=== PATIENT | female | born 1945 | race Caucasian/White ===

== ENCOUNTER 2017-01-20 08:12 | Inpatient (IN) ==
[2017-01-20] MEDS ORDERED: 0.9 % Sodium Chloride 1,000 ML IVC ONE (08:22)
--- NOTE | 2017-01-20 08:27 | Emergency Department Note ---
Disposition Clinical Impression: TIA (transient ischemic attack) Qualifiers: Transient cerebral ischemia type: unspecified Qualified Code(s): G45.9 - Transient cerebral ischemic attack, unspecified Disposition: Admitted As Inpatient Condition: Good Referrals: NO,PCP [Primary Care Provider] - Time of Disposition: 13:53 Neuro HPI - General Chief Complaint: ED Neuro Symptoms/Deficit Stated Complaint: Speech problems for 1 hour Time Seen by Provider: 01/20/17 08:21 Source: patient Mode of arrival: ambulatory Limitations: no limitations Nursing Notes Reviewed: Yes Vital Signs Reviewed: Yes - History of Present Illness HPI Narrative: 71-year-old female with 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 Patient has a history of possible mini strokes but has never been diagnosed with TIAs in the past, patient has no history of CAD, no history of atrial fibrillation. Denies chest pain abdominal pain nausea vomiting diarrhea constipation hematuria or dysuria Onset of Symptoms Date: 01/20/17 Onset of Symptoms Time: 07:25 Symptom Onset Unknown: Yes Timing confirmed by: spouse Location: speech History of same: No Severity: none, now resolved Symptoms Improving: Yes Improves with: none Worsens with: none On Anticoagulants: No Associated symptoms: Denies: confusion, chest pain, cough, diaphoresis, fever/ chills, loss of appetite, malaise, nausea/vomiting, vertigo, seizures, shortness of breath Treatments Prior to Arrival: none - Related Data Home Medications: Home Medications Medication Instructions Recorded Confirmed Aspirin Enteric Coated [Aspirin EC] 81 mg PO BID 01/20/17 01/20/17 Atorvastatin Calcium [Lipitor] 20 mg PO HS 01/20/17 01/20/17 Calcium Crb,Cit/D3/Min34/Julio César 1 tab PO DAILY 01/20/17 01/20/17 [Citracal + Bone Density Tablet] Cyanocobalamin (Vitamin B-12) 1,000 mcg PO DAILY 01/20/17 01/20/17 [Vitamin B12] Omeprazole [PriLOSEC] 20 mg PO DAILY 01/20/17 01/20/17 Spironolactone [Aldactone] 100 mg PO DAILY 01/20/17 01/20/17 predniSONE [PredniSONE] 10 mg PO DAILY 01/20/17 01/20/17 Allergies/Adverse Reactions: Allergies Allergy/AdvReac Type Severity Reaction Status Date / Time NSAIDS (Non-Steroidal AdvReac See Verified 01/20/17 13:01 Anti-Inflamma Comments All systems ED: reviewed and negative except as stated. Constitutional: Denies: fever, chills Eyes: Denies: eye pain, eye discharge ENT ED: Denies: ear pain Cardiovascular: Denies: chest pain, palpitations Respiratory: Denies: cough, dyspnea Gastrointestinal: Denies: abdominal pain, nausea Musculoskeletal: Denies: back pain, neck pain Neurological: Reports: as per HPI, other (speech trouble). Denies: headache, weakness, numbness, paresthesias, confusion, abnormal gait, vertigo Psychiatric: Denies: anxiety, depression Past Medical History - Past Medical History Attestation: Yes The following information was validated with the patient. Source: patient Physical Exam - General Limitations: no limitations General appearance: alert - Head Head exam: atraumatic, normocephalic - Eye Eye exam: Present: normal appearance, PERRL, EOMI - ENT ENT exam: normal exam, normal oropharynx - Neck Neck exam: Present: normal inspection, full ROM - Chest Chest inspection: Present: normal inspection, symmetric chest wall rise - Respiratory Respiratory exam: Present: normal lung sounds bilaterally. Absent: respiratory distress, wheezes - Cardiovascular Cardiovascular exam: Present: regular rate, normal rhythm - Abdominal Exam Abdominal exam: Present: soft, Non-Tender. Absent: tenderness - Extremities Exam Extremities exam: Present: normal inspection, full ROM - Back Exam Back exam: Present: normal inspection - Neurological Exam Neurological exam: Present: oriented X3, CN II-XII intact, normal gait, reflexes normal. Absent: motor sensory deficit - Expanded Neurological Exam Patient oriented to: Present: person, place, time Speech: Present: fluid speech. Absent: receptive aphasia Cranial nerves: EOM function (II, III, IV, ): Normal, facial sensation (V): Normal, facial palsy (VII): Normal, gag reflex (IX): Normal, spinal accessory function (XI): Normal, tongue deviation (XII): Normal Cerebellar function: finger to nose: Normal, heel to ely: Normal Cerebellar function: normal gait Motor strength - LUE: 5/5 Motor strength - RUE: 5/5 Motor strength - LLE: 5/5 Motor strength - RLE: 5/5 Upper motor neuron exam: carolyn neglect: Absent bilaterally Coma Scale Eye Opening: Spontaneous Coma Scale Motor Response: Obeys Commands Coma Scale Verbal Response: Oriented Coma Scale Total: 15 - Psychiatric Psychiatric exam: Present: normal affect - Skin Skin exam: Present: warm, dry Course Course Narrative: 71-year-old female with transient dysarthria, she has no neurologic deficits at time of the exam and her nature 0 therefore no stroke alert given contra indication of improved symptoms, no signs of stroke and at the time of the ED evaluation, the patient will be given a stat CT scan basic workup including CBC BMP troponin and further evaluation for possible TIA versus electrolyte abnormality or infectious etiology of her symptoms - Reevaluation(s) Reevaluation #1: Reevaluated patient still has no NIH scale her NIH is [address] is negative will give her aspirin, the patient does have the sense that she has some cognitive delay and she is not speaking quite right however it is not really noticeable on exam, therefore we will admit the patient for further neurologic evaluation and possible MRI Time: 13:00 Vital Signs Temperature 97.8 F 01/20/17 08:22 Pulse Rate 79 01/20/17 08:22 Respiratory Rate 16 01/20/17 08:22 Blood Pressure 188/84 01/20/17 08:22 O2 Sat by Pulse Oximetry 99 01/20/17 08:22 Temperature 97.8 F 01/20/17 08:22 Pulse Rate 78 01/20/17 11:23 Respiratory Rate 18 01/20/17 11:23 Blood Pressure 158/78 01/20/17 11:23 O2 Sat by Pulse Oximetry 96 01/20/17 11:23 Oxygen Delivery Oxygen Delivery Room Air Neuro Symptoms/Deficit - MDM Narrative Medical decision making narrative: 69-year-old female with possible TIA admitted to the medicine service under the care of Dr. Hancock in stable condition at the time of ED disposition - Differential Diagnosis Likely: cerebrovascular accident, transient cerebral ischemia, multiple sclerosis, convulsions - Medical Records Medical records reviewed: Yes I reviewed the patient's medical records. - Lab Data Lab results reviewed: Yes I reviewed the patient's lab results. Result diagrams: 01/20/17 08:43 01/20/17 08:43 Lab Results 01/20/17 01/20/17 01/20/17 Range/Units 08:23 08:43 08:43 WBC 11.8 H (4.3-11.1) K/mcL RBC 4.83 (3.82-4.97) M/mcL Hgb 14.9 (11.5-15.4) g/dL Hct 44.2 (35.3-44.9) % MCV 91.5 (83.0-100.0) fL MCH 30.8 (28.0-33.3) pg MCHC 33.7 (31.6-35.5) g/dL RDW 12.5 (11.5-14.5) % Plt Count 153 (140-400) K/mcL MPV 8.8 L (9.4-12.4) fL Immature Gran % 0.6 (0-4) % Seg Neutrophils % 82.2 % Lymphocytes % 11.4 % Monocytes % 4.7 % Eosinophils % 0.7 % Basophils % 0.4 % Neutrophils # 9.7 H (1.6-8.9) K/mcL Lymphocytes # 1.4 (0.6-4.6) K/mcL Monocytes # 0.6 (0.0-1.3) K/mcL Eosinophils # 0.1 (0.0-0.6) K/mcL Basophils # 0.1 (0.0-0.2) K/mcL PT 11.3 (9.4-12.1) Seconds INR 1.0 APTT 23.8 L (26.0-36.0) Seconds Sodium (136-145) mEq/L Potassium (3.5-4.5) mEq/L Chloride (98-109) mEq/L Carbon Dioxide (19-29) mEq/L BUN (7-20) mg/dL Creatinine (0.57-1.11) mg/dL Est GFR ( Amer) (> 60) Est GFR (Non-Af Amer) (> 60) BUN/Creatinine Ratio (6-26) Glucose (70-99) mg/dL POC Glucose 104 H (58-89) Calculated Osmolality (280-300) Calcium (8.6-10.8) mg/dL Troponin I (0-0.03) ng/mL Urine Color (Yellow) Urine Clarity (Clear) Urine pH (5.0-8.0) pH Units Ur Specific [place] (1.010-1.025) Urine Protein (Neg-Trace) mg/dL Urine Glucose (UA) (Normal) mg/dL Urine Ketones (Negative) mg/dL Urine Blood (Negative) Urine Nitrite (Negative) Urine Bilirubin (Negative) Urine Urobilinogen (Normal) mg/dL Ur Leukocyte Esterase (Negative) Urine Microscopic RBC (0-3) per hpf Urine Microscopic WBC (0-3) per hpf Ur Squamous Epith Cells (None-Few) per lpf Urine Bacteria (None-Few) per hpf Hyaline Casts (None-Few) per lpf Ur Culture Indicated? (NO) 01/20/17 01/20/17 01/20/17 Range/Units 08:43 08:43 11:19 WBC (4.3-11.1) K/mcL RBC (3.82-4.97) M/mcL Hgb (11.5-15.4) g/dL Hct (35.3-44.9) % MCV (83.0-100.0) fL MCH (28.0-33.3) pg MCHC (31.6-35.5) g/dL RDW (11.5-14.5) % Plt Count (140-400) K/mcL MPV (9.4-12.4) fL Immature Gran % (0-4) % Seg Neutrophils % % Lymphocytes % % Monocytes % % Eosinophils % % Basophils % % Neutrophils # (1.6-8.9) K/mcL Lymphocytes # (0.6-4.6) K/mcL Monocytes # (0.0-1.3) K/mcL Eosinophils # (0.0-0.6) K/mcL Basophils # (0.0-0.2) K/mcL PT (9.4-12.1) Seconds INR APTT (26.0-36.0) Seconds Sodium 141 (136-145) mEq/L Potassium 3.5 (3.5-4.5) mEq/L Chloride 103 (98-109) mEq/L Carbon Dioxide 28 (19-29) mEq/L BUN 18 (7-20) mg/dL Creatinine 1.04 (0.57-1.11) mg/dL Est GFR ( Amer) > 60 (> 60) Est GFR (Non-Af Amer) 53 L (> 60) BUN/Creatinine Ratio 17 (6-26) Glucose 111 H (70-99) mg/dL POC Glucose (58-89) Calculated Osmolality 295 (280-300) Calcium 9.8 (8.6-10.8) mg/dL Troponin I 0.01 (0-0.03) ng/mL Urine Color Yellow (Yellow) Urine Clarity Clear (Clear) Urine pH 7.0 (5.0-8.0) pH Units Ur Specific [place] 1.006 L (1.010-1.025) Urine Protein Negative (Neg-Trace) mg/dL Urine Glucose (UA) Normal (Normal) mg/dL Urine Ketones Negative (Negative) mg/dL Urine Blood Negative (Negative) Urine Nitrite Negative (Negative) Urine Bilirubin Negative (Negative) Urine Urobilinogen Normal (Normal) mg/dL Ur Leukocyte Esterase Trace H (Negative) Urine Microscopic RBC 0-3 (0-3) per hpf Urine Microscopic WBC 0-3 (0-3) per hpf Ur Squamous Epith Cells Moderate H (None-Few) per lpf Urine Bacteria None Seen (None-Few) per hpf Hyaline Casts None Seen (None-Few) per lpf Ur Culture Indicated? YES A (NO) - Radiology Data Radiology results reviewed: Yes I reviewed the patient's radiology results. Head CT 01/20/17 08:22 IMPRESSION: No acute intracranial abnormality. D/ / Francisco Mcknight MD / Francisco Mcknight MD Interpreting Provider: Francisco Mcknight MD - EKG Data EKG attestation: Yes I reviewed and interpreted this EKG. EKG shows normal: sinus rhythm (Sinus rhythm ventricular rate 72 AK 171 QRS 102 QTC for [address] seg changes) When compared to previous EKG there are: previous EKG unavailable Interpretation: no acute changes - Core Measures AMI Core Measures Followed: No Measure Exclusions: not indicated NIH Stroke Scale - Level of Consciousness LOC: Alert - LOC Questions LOC Questions: Answers both correctly - LOC Commands LOC Commands: Performs both correctly - Best Gaze Best Gaze: Normal - Visual Visual: No visual loss - Facial Palsy Facial Palsy: Normal - Motor Arms Motor Arm-Left: No drift for 10 seconds Motor Arm-Right: No drift for 10 seconds - Motor Legs Motor Leg-Left: No drift for 5 seconds Motor Leg-Right: No drift for 5 seconds - Limb Ataxia Limb Ataxia: Absent of affected limb too weak to perform exam - Sensory Sensory: Normal - Best Language Best Language: No aphasia - Dysarthria Dysarthria: Normal - Extinction and Inattention Extinction and Inattention: Normal - NIHSS Total Score NIHSS Total Score: 0 TPA Checklist - LKW: 3-4.5 hrs Add. Warnings/Precautions Patient/family understanding: The patient/family members have been counseled and understood the risk, benefit , and alternatives of treatment. Attestation Statement - Attestation Attestation: I examined this patient and my medical decision-making was reviewed with the JEWEL SUPERVISOR/PA/Advanced Practice Nurse/Resident Physician. I agree with the documented findings, disposition and treatment plan as described except to the extent set forth below. Patient emergency department with some speech problems. Patient states she was looking at hay jennifer this morning and could not remember how they got there. States she was also having trouble with word finding. States is mostly resolved but her states she is not speaking normally at this time. Patient states she has had 2 mini strokes in the past. Denies any numbness tingling or weakness. On examination she is awake and alert. Speech pattern seem appropriate for us. NIH scale is 0. She is able to name fixtures. She is able to read names appropriately. No focal findings. Plan. The patient had a neuro workup is unremarkable. Concern for TIA. Patient will be admitted.
[2017-01-20 08:49] LABS: Basophils # 0.1 K/mcL (0.0-0.2); Basophils % 0.4 %; Eosinophils # 0.1 K/mcL (0.0-0.6); Eosinophils % 0.7 %; Hematocrit 44.2 % (35.3-44.9); Hemoglobin 14.9 g/dL (11.5-15.4); Immature Granulocytes % 0.6 % (0-4); Lymphocytes # 1.4 K/mcL (0.6-4.6); Lymphocytes % 11.4 %; Mean Corpuscular HGB Conc 33.7 g/dL (31.6-35.5); Mean Corpuscular Hemoglobin 30.8 pg (28.0-33.3); Mean Corpuscular Volume 91.5 fL (83.0-100.0); Mean Platelet Volume 8.8 fL (9.4-12.4); Monocytes # 0.6 K/mcL (0.0-1.3); Monocytes % 4.7 %; Neutrophils # 9.7 K/mcL (1.6-8.9); Platelet Count 153 K/mcL (140-400); Red Blood Count 4.83 M/mcL (3.82-4.97); Red Cell Distribution Width 12.5 % (11.5-14.5); Segmented Neutrophils % 82.2 %
[2017-01-20 08:55] LABS: Prothrombin Time 11.3 Seconds (9.4-12.1)
[2017-01-20 08:58] LABS: Activated Partial Thrombo Time 23.8 Seconds (26.0-36.0)
[2017-01-20 09:04] LABS: BUN/Creatinine Ratio 17 (6-26); Blood Urea Nitrogen 18 mg/dL (7-20); Calcium 9.8 mg/dL (8.6-10.8); Carbon Dioxide 28 mEq/L (19-29); Chloride 103 mEq/L (98-109); Glucose 111 mg/dL (70-99); Osmolality,Calculated 295 (280-300); Potassium 3.5 mEq/L (3.5-4.5); Sodium 141 mEq/L (136-145); eGFR For African Americans > 60 (> 60); eGFR For Non-African Americans 53 (> 60)
[2017-01-20 11:32] LABS: Bilirubin,Urine Negative (Negative); Blood,Urine Negative (Negative); Clarity,Urine Clear (Clear); Color,Urine Yellow (Yellow); Glucose,Urine (UA) Normal (Normal); Ketones,Urine Negative (Negative); Leukocyte Esterase,Urine Trace (Negative); Nitrite,Urine Negative (Negative); Protein,Urine Negative (Neg-Trace); Specific Gravity,Urine 1.006 (1.010-1.025); Urobilinogen,Urine Normal (Normal)
[2017-01-20 11:35] LABS: Bacteria,Urine None Seen per hpf (None-Few); Hyaline Casts,Urine None Seen per lpf (None-Few); RBC,Urine 0-3 per hpf (0-3); Squamous Epithelial Cell,Urine Moderate per lpf (None-Few); WBC,Urine 0-3 per hpf (0-3)
[2017-01-20] MEDS ORDERED: Aspirin 325 MG TABLET PO ONE (12:07)
[2017-01-20] MEDS ORDERED: Naloxone 0.4 MG/ML INJ IVP PRN (13:48)
[2017-01-20] MEDS ORDERED: Acetaminophen 325 MG TABLET PO PRN (13:48)
--- NOTE | 2017-01-20 15:44 | Internal Med History&Physical ---
Date of Encounter: 01/21/17 Time of Encounter: 15:42 Assessment and Plan (1) TIA (transient ischemic attack) Current visit: Yes Status: Acute 71/female Admitted with symptoms of TIA/CVA. Noted bizarre behavior in terms of identifying simple things on her way to [place]. Emergency room workup negative for any acute events. Plan: -Admit as inpatient. -Telemetry. -Cardiac diet -ASA/Statin - MRI brain without contrast. -Ultrasound candidate. -Echocardiogram. -Cycle troponin 3. -Possible further workup if MRI shows infarction Qualifiers: Transient cerebral ischemia type: unspecified Qualified Code(s): G45.9 - Transient cerebral ischemic attack, unspecified (2) Rash Current visit: Yes Status: Acute Patient with generalized rash maculopapular, nonblanching, mostly on the back, torso and lower extremities. Patient was started on Plaquenil 4 weeks back. Plaquenil was started for lupus-like symptoms and elevated SUBHASH. Patient was seen by wardrobe technician for persistent small joint pains and extensive workup was done which was negative except elevated SUBHASH. Patient was started on Plaquenil and steroids. The patient developed a rash, her Plaquenil was discontinued and steroid was continued in tapering dosages. Plan: Rheumatology review Possible opinion from dermatology for extensive rash (3) DVT prophylaxis Current visit: Yes Status: Acute heparin Internal Medicine - H&P: HPI Chief complaint: difficulty in speech Admitted From: Emergency Dept Plans for Post Hospital Care: Home History of present illness: 71/F PCP : Dr Coleen Norman Brief PMH: GERD, Lupus ( treated like ), Hepatitis HPI: Patient was on her way to [place] from [facility], [place]. Noted that during the drive she has a dysarthria. noted few episodes of confusion. Patient claims that problems was getting worse and her noted some bizarre behavior in terms of identifying simple objects. Patient denies history of coronary artery disease, atrial fibrillation, nausea, vomiting, chest pain, abdominal pain or diarrhea. Patient was concerned regarding this is an patient and he brought her to the emergency room for further evaluation. Course in emergency room: Patient was evaluated in the emergency room.Basic labs are drawn.CT scan of the head was performed. Reason for admission: Possible TIA to rule out CVA Past Med Surg Social Fam HX - Past Medical History Medical history: GERD, hepatitis, hyperlipidemia, TIA Psychiatric history: no psych history - Social History Smoking Status: Never smoker Smokeless Tobacco Status: No Alcohol use: rarely Drug use: none Internal Medicine - H&P: Meds Aspirin Enteric Coated [Aspirin EC] 81 mg PO BID 01/20/17 [History] Atorvastatin Calcium [Lipitor] 20 mg PO HS 01/20/17 [History] Calcium Crb,Cit/D3/Min34/Julio César [Citracal + Bone Density Tablet] 1 tab PO DAILY 01/20/17 [History] Cyanocobalamin (Vitamin B-12) [Vitamin B12] 1,000 mcg PO DAILY 01/20/17 [History ] Omeprazole [PriLOSEC] 20 mg PO DAILY 01/20/17 [History] Spironolactone [Aldactone] 100 mg PO DAILY 01/20/17 [History] predniSONE [PredniSONE] 10 mg PO DAILY 01/20/17 [History] Allergies NSAIDS (Non-Steroidal Anti-Inflamma Adverse Reaction (Verified 01/20/17 13:01) See Comments RINGING IN THE EARS All Systems PM: A 10-system review of systems was performed and is negative for pertinent findings except as documented above in the HPI. - Constitutional Constitutional: no chills, no fever(s), no night sweats - EENT Eyes: no change in vision, no discharge, no pain, no photophobia Ears: no ear discharge, no ear pain, no tinnitus Nose, mouth and throat: no dysphagia, no nasal discharge, no neck pain, no sore throat - Cardiovascular Cardiovascular ROS IM: no chest pain, no diaphoresis, no dyspnea, no lightheadedness, no palpitations, no syncope - Respiratory Respiratory: no cough, no dyspnea, no wheezing, no excessive phlegm production - Gastrointestinal Gastrointestinal: no abdominal pain, no diarrhea, no hematemesis, no hematochezia, no melena, no nausea, no vomiting - Genitourinary Genitourinary: no change in urinary stream, no dysuria, no flank pain, no hematuria - Musculoskeletal Musculoskeletal ROS IM: no numbness, no tingling - Integumentary Integumentary IM: no rash, no unusual bruising - Neurological Neurological ROS: abnormal gait, abnormal speech, focal weakness, vertigo, no confusion, no convulsions, no numbness, no tingling, no tremor(s) - Hematologic/Lymphatic Hematologic/Lymphatic: no easy bruising - Constitutional Vitals: Temp Pulse Resp BP Pulse Ox 97.8 F 78 18 158/78 96 01/20/17 08:22 01/20/17 11:23 01/20/17 11:23 01/20/17 11:23 01/20/17 11:23 General appearance: Present: A&O X 3, pleasant, no acute distress, answers questions appropriately - Head Head exam: Present: atraumatic, normocephalic - Eye Eye exam: Present: PERRL, conjuntiva pink, sclera anicteric Pupils: Present: PERRL - Neck Neck exam general surgery: Present: supple, trachea midline. Absent: lymphadenopathy - Respiratory Respiratory exam: Present: CTAB. Absent: accessory muscle use, rales, rhonchi, wheezes - Cardiovascular Cardiovascular exam: Present: RRR, +S1, +S2. Absent: diastolic murmur, gallop, rubs, systolic murmur - GI/Abdominal GI/Abdominal exam: Present: normal bowel sounds, soft, no peritoneal signs. Absent: distended, tenderness - Extremities Exam Extremities exam: Present: warm, radial pulses palpable and symetrical. Absent : calf tenderness, cyanotic, pedal edema - Neurological Exam Neurological exam: Present: CN II-XII intact, oriented X3, no focal deficits. Absent: pronater drift, facial droop, speech deficit - Skin Skin exam: Present: dry, intact Internal Med - H&P Results - Labs CBC & Chem 7: 01/21/17 01:51 01/21/17 01:51 - Impressions ITS Impressions Brain MRI 01/20/17 13:52 IMPRESSION: 1. Small acute infarct involving the left frontal lobe. 2. No significant mass effect or midline shift. 3. Minimal chronic microvascular ischemic changes. These results were sent to the [facility] ([facility]) on 01/20/2017 at 2:54 pm to be communicated to the referring/covering health care provider/office. D/ / Charly Weldon MD / Charly Weldon MD Interpreting Provider: Charly Weldon MD
--- NOTE | 2017-01-20 15:48 | Electrocardiograph Report ---
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
[2017-01-20] MEDS: *HR* Heparin 5,000 UNIT/ML VIAL SQ SCH (17:54)
[2017-01-21 02:03] LABS: Basophils % 0.4 %; Eosinophils # 0.1 K/mcL (0.0-0.6); Hematocrit 41.4 % (35.3-44.9); Immature Granulocytes % 0.5 % (0-4); Lymphocytes # 2.3 K/mcL (0.6-4.6); Lymphocytes % 24.7 %; Mean Corpuscular HGB Conc 33.8 g/dL (31.6-35.5); Mean Corpuscular Hemoglobin 30.4 pg (28.0-33.3); Mean Platelet Volume 8.9 fL (9.4-12.4); Monocytes # 0.6 K/mcL (0.0-1.3); Monocytes % 6.9 %; Neutrophils # 6.1 K/mcL (1.6-8.9); Platelet Count 145 K/mcL (140-400); Red Cell Distribution Width 12.5 % (11.5-14.5); Segmented Neutrophils % 66.5 %
[2017-01-21 02:19] LABS: Alanine Aminotransferase 18 Units/L (0-55); Albumin 3.2 g/dL (3.5-5.0); Albumin/Globulin Ratio 1.1 (1.1-2.2); Alkaline Phosphatase 59 Units/L (38-126); Aspartate Amino Transferase 17 Units/L (5-34); BUN/Creatinine Ratio 14 (6-26); Bilirubin,Total 0.5 mg/dL (0.2-1.2); Blood Urea Nitrogen 13 mg/dL (7-20); Calcium 8.9 mg/dL (8.6-10.8); Carbon Dioxide 23 mEq/L (19-29); Chloride 110 mEq/L (98-109); Chol/HDL Ratio 2.4 (0-4.9); Cholesterol 152 mg/dL (< 200); Globulin 2.9 g/dL (2.4-3.5); Glucose 88 mg/dL (70-99); HDL Cholesterol 63 mg/dL (40-59); LDL Cholesterol,Calculated 75 mg/dL (0-99); Magnesium 1.6 mg/dL (1.6-2.6); Osmolality,Calculated 294 (280-300); Phosphorous 3.4 mg/dL (2.3-4.7); Potassium 3.8 mEq/L (3.5-4.5); Sodium 142 mEq/L (136-145); Total Protein 6.1 g/dL (6.0-8.3); Triglycerides 68 mg/dL (< 150); eGFR For African Americans > 60 (> 60); eGFR For Non-African Americans 59 (> 60)
[2017-01-21] MEDS: *HR* Heparin 5,000 UNIT/ML VIAL SQ SCH ×2 (05:26→17:31)
[2017-01-21] MEDS: predniSONE 10 MG TABLET PO SCH (08:21)
[2017-01-21] MEDS: Cyanocobalamin (B-12) 1,000 MCG TABLET PO SCH (08:21)
[2017-01-21] MEDS: Aspirin Enteric Coated 81 MG Tablet PO SCH (08:21)
[2017-01-21] MEDS ORDERED: D3 PO SCH (09:00)
[2017-01-21] MEDS ORDERED: CALCIUM CRB CIT PO SCH (09:00)
[2017-01-21] MEDS ORDERED: [UNRECOGNIZED DRUG - OTHER] PO SCH (09:00)
--- NOTE | 2017-01-21 09:32 | Internal Med Progress Note ---
<Nolan Larsen P - Last Filed: 01/21/17 12:14> Date of Encounter: 01/21/17 - Assessment and plan (1) TIA (transient ischemic attack) Current Visit: Yes Status: Acute Qualifiers: Transient cerebral ischemia type: unspecified Qualified Code(s): G45.9 - Transient cerebral ischemic attack, unspecified (2) Rash Current Visit: Yes Status: Acute (3) DVT prophylaxis Current Visit: Yes Status: Acute - Constitutional Vitals: Temp Pulse Resp BP Pulse Ox 98.1 F 77 16 161/80 96 01/21/17 11:00 01/21/17 11:00 01/21/17 11:00 01/21/17 11:00 01/21/17 11:00 Internal Medicine: Result - Labs CBC & Chem 7: 01/21/17 01:51 01/21/17 01:51 Labs: Short CBC 01/21/17 Range/Units 01:51 WBC 9.2 (4.3-11.1) K/mcL Hgb 14.0 (11.5-15.4) g/dL Hct 41.4 (35.3-44.9) % Plt Count 145 (140-400) K/mcL Neutrophils # 6.1 (1.6-8.9) K/mcL BMP 01/21/17 01:51 Sodium 142 Potassium 3.8 Chloride 110 H Carbon Dioxide 23 BUN 13 Creatinine 0.94 Glucose 88 Calcium 8.9 Cardiac Enzymes 01/20/17 01/21/17 Range/Units 19:41 01:51 Troponin I 0.02 0.01 (0-0.03) ng/mL Liver Function 01/21/17 Range/Units 01:51 Total Bilirubin 0.5 (0.2-1.2) mg/dL AST 17 (5-34) Units/L ALT 18 (0-55) Units/L Alkaline Phosphatase 59 (38-126) Units/L Albumin 3.2 L (3.5-5.0) g/dL - ABG Interpretation ABG results: PT/INR, D-dimer PT 11.3 Seconds (9.4-12.1) 01/20/17 08:43 - Impressions Impressions Brain MRI 01/20/17 13:52 IMPRESSION: 1. Small acute infarct involving the left frontal lobe. 2. No significant mass effect or midline shift. 3. Minimal chronic microvascular ischemic changes. These results were sent to the [facility] ([facility]) on 01/20/2017 at 2:54 pm to be communicated to the referring/covering health care provider/office. D/ / Charly Weldon MD / Charly Weldon MD Interpreting Provider: Charly Weldon MD Consult Discharge Plan - Plan Referrals: NO,PCP [Primary Care Provider] - - Attending Attestation I examined this patient and my medical decision-making was reviewed with the ALARM ADJUSTER/PA/Advanced Practice Nurse/Resident Physician. I agree with the documented findings, disposition and treatment plan as described except to the extent set forth below. Rheumatology and Neurology input appreciated. <Gold Fisher Richard - Last Filed: 01/21/17 17:41> Date of Encounter: 01/21/17 Time of Encounter: 09:31 - Assessment and plan (1) CVA (cerebral vascular accident) Current Visit: Yes Status: Acute Assessment and plan: Patient was found to have left frontal lobe ischemic stroke on Brain MRI after presenting with dysarthria. Her symptoms improved over night but have not resolved to her baseline She denies any new neurological symptoms. - Neuro exam does not demonstrate any significant findings. - Hx of ischemic strokes without conclusion for cause in the past - Echocardiogram negative for apical clot, PFO or other significant causes. - No hx of A-fib and no episodes on cardiac monitoring. - Lipid panel without significant findings. Of significants the patient is currently undergoing rheumatologic work up for a rash she has by her PCP and has a + SUBHASH. She has no previous causes for her strokes and is currently on 160mg ASA. She was started on Plaqunil 4 weeks ago and stopped do to a rash. She was then started on prednisone and reduced dose just prior to this episode. There is a possibility for vasculitis stroke but can not rule out thrombotic or embolic. Plan: -Consult to endrocronology - Consult to Neurology - Start daily Plavix - Continue neurologic evaluations. - blood pressures stable. Qualifiers: Qualified Code(s): I63.9 - Cerebral infarction, unspecified (2) History of CVA in adulthood Current Visit: Yes Status: Acute Assessment and plan: As discussed above. (3) Rash Current Visit: Yes Status: Acute Assessment and plan: Diffuse body rash, that is erythematous, urticaria with clusters under her breast, back and groin. She does have one very large erythematous spot on her anterior left thigh that could be entertained as a Yisel spot. Rash has been spreading for weeks. Plan: - Could be associated with recent medications - not improving with PO steroids - May need punch biopsy to assist with diagnosis and treatment. (4) DVT prophylaxis Current Visit: Yes Status: Acute Assessment and plan: SQ Heparin Q12hrs. - Subjective Interval history: Ms. Miranda 71 yo female has been seen and evaluated at patient bedside this morning. She is alert awake and interactive in no acute distress. She denies any new neurologic symptoms or any progression or change in her speech. She feels that her speech is improved compared to yesterday when her symptoms started but has not completely resolved. She is very concerned for what may be causing these strokes. She feels that her rash is still the same compared to yesterday with no change in symptoms. It is still very itchy on her back. She provided copies of her outpatient records and lab results. She has no other concerns at this time. She hopes resolution or a finding for her strokes and to prevent them in the future. - Constitutional Vitals: Temp Pulse Resp BP Pulse Ox 98.2 F 64 16 132/72 98 01/21/17 06:26 01/21/17 06:26 01/21/17 06:26 01/21/17 06:26 01/21/17 06:26 General appearance: Present: A&O X 3, pleasant, no acute distress, answers questions appropriately Exam: General: Patient alert, awake, oriented 3, interactive, in no acute distress HEENT: Normocephalic, atraumatic, pupils equal reactive to light, nasal cavity patent and open septum median position, oral mucosa moist, uvula midline, neck supple trachea midline no palpable lymphadenopathy, no thyromegaly. Chest: Symmetric bilateral correlating with respiratory effort, effort nonlabored. Cardiac: Regular rate and rhythm, positive S1, S2, no bruits appreciated bilateral carotids, Radial pulses 2+ bilateral, posterior tibial and dorsal pedal pulses 2+ bilateral. Respiratory: Clear to auscultation all lung biggs Abdomen: Soft, nontender, positive bowel sounds, no palpable masses appreciated on examination Extremities: Symmetric bilateral, no erythema or edema, patient moving all 4 extremities spontaneously. Neurologic: No focal deficits appreciated on examination. Coronaries 2 through 12 intact Face symmetric, muscle strength symmetric bilateral upper and lower extremities. SKIN: Diffuse erythematous rash that is lacy with uticaria. Clusters under the breast, back and groin. Large spot on left anterior thigh that could be a yisel spot. Internal Medicine: Result - Labs CBC & Chem 7: 01/21/17 01:51 01/21/17 01:51 Labs: Short CBC 01/21/17 Range/Units 01:51 WBC 9.2 (4.3-11.1) K/mcL Hgb 14.0 (11.5-15.4) g/dL Hct 41.4 (35.3-44.9) % Plt Count 145 (140-400) K/mcL Neutrophils # 6.1 (1.6-8.9) K/mcL BMP 01/21/17 01:51 Sodium 142 Potassium 3.8 Chloride 110 H Carbon Dioxide 23 BUN 13 Creatinine 0.94 Glucose 88 Calcium 8.9 Cardiac Enzymes 01/20/17 01/21/17 Range/Units 19:41 01:51 Troponin I 0.02 0.01 (0-0.03) ng/mL Liver Function 01/21/17 Range/Units 01:51 Total Bilirubin 0.5 (0.2-1.2) mg/dL AST 17 (5-34) Units/L ALT 18 (0-55) Units/L Alkaline Phosphatase 59 (38-126) Units/L Albumin 3.2 L (3.5-5.0) g/dL - ABG Interpretation ABG results: PT/INR, D-dimer PT 11.3 Seconds (9.4-12.1) 01/20/17 08:43 - Impressions Impressions Brain MRI 01/20/17 13:52
--- NOTE | 2017-01-21 11:41 | Rheumatology Consult Note ---
<Radhika Llamas - Last Filed: 01/21/17 17:05> Date of Encounter: 01/21/17 Time of Encounter: 11:00 Rheumatology Assess and Plan (1) CVA (cerebral vascular accident) Current Visit: Yes Status: Acute - Brain MRI found acute infarct in left frontal lobe. - Patient did have elevated SUBHASH and weak positive anti-smooth muscle ab, which can be associated with autoimmune hepatitis. But the hepatitis seems to be controlled as patient now has normal liver function test. - Will check lupus anticoagulant panel, C3, C4, anti-DS DNA, cardiolipin IgG & IgM, beta-2 glycoprotein 1 IgG & IgM. - Case was discussed with Dr. Nazario. Less likely DIGITAL CAMPAIGN MANAGER vasculitis given that usually presents with multiple infarcts in multiple area of brain. Consider neurology consult if still having concern for DIGITAL CAMPAIGN MANAGER vasculitis. - Continue home dose prednisone. - Continue aspirin and statin. Qualifiers: CVA mechanism: unspecified Qualified Code(s): I63.9 - Cerebral infarction, unspecified (2) Rash Current Visit: Yes Status: Acute - Likely drug-induced. Rheumatology HPI Consult date: 01/21/17 Requesting physician: Gold Fisher Consult reason: suspect DIGITAL CAMPAIGN MANAGER vasculitis Chief complaint: Dysarthria History of present illness: Ms. Miranda is a 71 year old female with PMH of GERD, hyperlipidemia and history of strokes (1989 & 2011). Patient had sudden-onset of dysarthria at ~ 7am on and presented to [facility] ED. Brain MRI found acute infarct in the left frontal lobe and patient was admitted for further work-up and management of stroke. Patient also reports seeing corporate claims examiner Dr. Alycia Rocha at [place] for possible autoimmune disorder. [facility]ology is consulted for the concern of DIGITAL CAMPAIGN MANAGER vasculitis. Patient was seen and examined this morning. Patient recalls having arthralgia of bilateral hands and fingers in October and was found to have elevated SUBHASH. Patient was started on Prednisone 30 mg daily and Plaquenil 200 mg BID at that time and those hand arthralgia along with left shoulder pain both resolved. Patient is still on prednisone 10 mg daily. Plaquenil was discontinued on . On 01/16/17, patient started to develop rash which first appeared on epigastric area but later spread to torso and extremities. Patient states the rash is not itchy nor tender. Otherwise patient reports no other complaint. The dysarthria significantly improves since admission. Patient denies vision change , eye redness/inflammation, hearing change, numbness/tingling, focal weakness, fever, chills, headache, shortness of breath, cough, chest pain, abdominal pain , nausea, vomiting, diarrhea, hematochezia, melena, hematuria, dysuria, arthralgia, myalgia, easily bleeding or bruise. Patient denies known personal history of blood clot problem but admits her father had multiple episodes of blood clots. Patient's prior outpatient lab is reviewed. October 2015: SUBHASH >= 1:640, November 2015: Anti-Smooth muscle Ab 25 (weak positive), CCP negative, TPMT activity 8 (heterozygote or low metablizer) Past Med Surg Social Fam HX - Past Medical History Medical history: GERD, hepatitis, hyperlipidemia, TIA Psychiatric history: no psych history - Social History Smoking Status: Never smoker Smokeless Tobacco Status: No Alcohol use: rarely Drug use: none - Family History Father Living Status: Hx Family Medical Disorders: Yes (Multiple episodes of blood clots.) Medications and Allergies Aspirin Enteric Coated [Aspirin EC] 81 mg PO BID 01/20/17 [History] Atorvastatin Calcium [Lipitor] 20 mg PO HS 01/20/17 [History] Calcium Crb,Cit/D3/Min34/Julio César [Citracal + Bone Density Tablet] 1 tab PO DAILY 01/20/17 [History] Cyanocobalamin (Vitamin B-12) [Vitamin B12] 1,000 mcg PO DAILY 01/20/17 [History ] Omeprazole [PriLOSEC] 20 mg PO DAILY 01/20/17 [History] Spironolactone [Aldactone] 100 mg PO DAILY 01/20/17 [History] predniSONE [PredniSONE] 10 mg PO DAILY 01/20/17 [History] Allergies NSAIDS (Non-Steroidal Anti-Inflamma Adverse Reaction (Verified 01/20/17 13:01) See Comments RINGING IN THE EARS All Systems Review: A 10-system review of systems was performed and is negative for pertinent findings except as documented above in the HPI. Review of Systems: Patient denies vision change, eye redness/inflammation, hearing change, numbness /tingling, focal weakness, fever, chills, headache, shortness of breath, cough, chest pain, abdominal pain, nausea, vomiting, diarrhea, hematochezia, melena, hematuria, dysuria, arthralgia, myalgia, easily bleeding or bruise. Rheumatology Exam Vital Signs, Last 4 Hours Temp Pulse Resp BP Pulse Ox 01/21/17 11:00 98.1 F 77 16 161/80 96 Exam: Gen: A&Ox3, NAD, cooperative. HEENT: AT/NC, EOMI, PERRL, no eye redness noted, mucosa moist, no oral sore/ ulcer noted, neck supple, no significant cervical lymphoadenopathy noted. CV: RRR, no murmurs appreciated. Lungs: CTAB, no wheezes, rales or rhonchi. Abd: Soft, non-tender, positive bowel sounds. Neuro: CN II - XII grossly intact, strengths 5/5 symmetrical, no focal deficit noted. Extremities: Full ROM, no joint swelling or tenderness noted. Skin: Diffuse macules, mostly at torso and some on four extremities. Rheumatology Results 01/21/17 01:51 01/21/17 01:51 All other labs normal. Consult Discharge Plan - Plan Referrals: NO,PCP [Primary Care Provider] - <David Nazario - Last Filed: 01/22/17 07:06> Date of Encounter: 01/22/17 Rheumatology HPI History of present illness: Ms. Miranda is a 71 year old female All Systems Review: A 10-system review of systems was performed and is negative for pertinent findings except as documented above in the HPI. Rheumatology Exam Vital Signs, Last 4 Hours Temp Pulse Resp BP Pulse Ox 01/22/17 06:45 98.3 F 65 17 142/73 98 01/22/17 04:29 98.0 F 72 16 128/74 96 Rheumatology Results 01/22/17 05:19 01/22/17 05:19 All other labs normal. - Attending Attestation I examined this patient and my medical decision making was reviewed with the resident physician. I agree with the documented findings, disposition and treatment as described with these exceptions. In summary, 71 year old female with PMH of stroke (1997, 2011 no deficits), 2 miscarriages (first trimester), HLD presents to the hospital with an acute CVA. - Recently diagnosed with inflammatory arthritis (Outside labs SUBHASH 1:640, RF/ CCP negative) responded to prednisone - 6 day history of rash, started 4 days after hydroxychloroquine - New small acute infarct on MRI of brain. - TTE reviewed, no valvular vegetations suggested. - CBC, CMP, UA without signs suggestive of organ dysfunction. - Exam with diffuse, erythematous poorly circumscribed rash affecting trunk and back. - No synovitis or joint tenderness. 1) Acute CVA - MRI with one lesion - with one lesion, I am not too suspicious for a DIGITAL CAMPAIGN MANAGER vasculitis given lack of prodrome and one lesion. I spoke to the hospitalist and neurologist; plan is for CTA to assess vessels. Current management per medicine and neurology. Given history of multiple strokes/TIA in the past, 2 miscarriages (both in first trimester), should check APLS labwork. Will check complements and dsDNA for signs of active connective tissue disease though exam not too suggestive of this right now; she is also on prednisone. 2) Inflammatory arthritis - Resolved at this time but remains on prednisone. 3) Rash - Unclear if drug rash or precipitated by cessation of plaquenil. She is on prednisone per outpatient medications and she should continue per their instruction. If persists, consider dermatology evaluation. 4) History of miscarriages - 2 miscarriages in first trimester. APLS workup. At this time, ordering labwork that will not likely result in the next few days ; if patient is discharged, I will check labs and notify patient of positives.
[2017-01-21] MEDS: 0.9 % Sodium Chloride 1,000 ML IVC SCH (14:26)
--- NOTE | 2017-01-21 14:56 | Neurology - Consult Note ---
<Jefferson Matthews - Last Filed: 01/21/17 16:40> Date of Encounter: 01/21/17 Time of Encounter: 14:00 Assessment and Plan (1) CVA (cerebral vascular accident) Current Visit: Yes Status: Acute Patient has left frontal lobe ischemic infarct identified on MR brain w/o contrast. Given Pt's speech difficulties it is most likely a lacunar type infarct around speech center which is resolving rapidly. Pt is currently doing well and has no focal deficits on PE. Pt and states that her symptoms are improving and Pt states she is feeling well. given the pace of resolution. Pt should not have much in the form of deficits if trend continues. Pt is at an increased risk for re-infarction given this is her 3rd event with previous scarring seen on MRI, also lacunar infarct. Pt has been made aware of this and is currently happy about her symptoms resolving. CTA head did not identify any vascular narrowing. Recommendaitons for continuing on asa81 mg and start on plavix. Pt plans to continue road trip to [place] and we strongly recommend Pt to stay very hydrated to prevent increased intravascular viscosity. Pt states she understands and agrees to treatment and plan. No further recommendations from Neurology. Pt is cleared for Medical team disposition. History of Present Illness Chief complaint: confusion HPI: Ms. Miranda is a 71 year old female with a pmh for previous stroke/TIA x 2 last on in 2010, HTN, HLD, inflammatory arthritis, and GERD who presented with acute onset of speech difficulty and confusion x 1 dy ago. Pt states that her husbnd and her had starte their road trip to [place] when the patient noticed a field of hay with a hay bailer and was trying to describe what she saw but couldn't say any names and started to feel confused. Pt was seen in the [facility] ED 45 min after onset of symptoms. Pt's confusion was intermitten and continued in the ED as well as the speech dificulty. No other deficits were noted except for the mild aphasia. Pt was seen and examined at the bedside and has no complaints at this time and wonders if they will be able to leave today. Both her and her at bedside say that her confusion is gone but still has periodic difficulty with producing names. Past Med Surg Social Fam HX - Past Medical History Attestation: Yes The following information was validated with the patient. Source: patient Medical history: GERD, hepatitis, hyperlipidemia, TIA Psychiatric history: no psych history - Social History Smoking Status: Never smoker Smokeless Tobacco Status: No Alcohol use: rarely Drug use: none Medications and Allergies Aspirin Enteric Coated [Aspirin EC] 81 mg PO BID 01/20/17 [History] Atorvastatin Calcium [Lipitor] 20 mg PO HS 01/20/17 [History] Calcium Crb,Cit/D3/Min34/Julio César [Citracal + Bone Density Tablet] 1 tab PO DAILY 01/20/17 [History] Cyanocobalamin (Vitamin B-12) [Vitamin B12] 1,000 mcg PO DAILY 01/20/17 [History ] Omeprazole [PriLOSEC] 20 mg PO DAILY 01/20/17 [History] Spironolactone [Aldactone] 100 mg PO DAILY 01/20/17 [History] predniSONE [PredniSONE] 10 mg PO DAILY 01/20/17 [History] Allergies NSAIDS (Non-Steroidal Anti-Inflamma Adverse Reaction (Verified 01/20/17 13:01) See Comments RINGING IN THE EARS All Systems: A 10-system review of systems was performed and is negative for pertinent findings except as documented above in the HPI. Pt only admits to confusion, aphasia and rash Physical Examination - Vital Signs Vital Signs: Initial Vital Signs Temp Pulse Resp BP Pulse Ox 97.8 F 79 16 188/84 99 01/20/17 08:22 01/20/17 08:22 01/20/17 08:22 01/20/17 08:22 01/20/17 08:22 - Constitutional General appearance: comfortable - Neurologic Sensorimotor examination: intact Detailed motor examination: grossly full strength in all extremities, full strength in all major muscle groups Motor examination - right side: 5/5: deltoids, biceps, triceps, wrist flexion, wrist extension, computer support specialist, hip flexors, tibialis Anterior, quadriceps, toe extension (EHL), plantarflexion Motor examination - left side: 5/5: deltoids, biceps, triceps, wrist flexion, wrist extension, hip flexors, computer support specialist, quadriceps, tibialis Anterior, toe extension (EHL), plantarflexion Detailed sensory examination: intact, light touch Reflexes: Biceps: 2+, Triceps: 2+, Brachioradialis: 2+, Patella: 2+, Achilles: 2 + Mental Status Examination: awake, alert, oriented to person, oriented to place, oriented to time, follows commands appropriately, answers questions appropriately, no agnosia, no aproxia Cranial nerve examination: PERRL, EOMI, visual biggs intact, corneal reflexes brisk symmetrically, sensory to face intact, mastication intact, no facial asymmetry is present, no dysarthria, hearing is intact symmetrically, soft palate elevates bilaterally upon phonation, gag reflex intact, flexes SCM and trapezius muscles symmetrically with full power, tongue protrudes midline, no atrophy or facial fasiculations present Cerebellar examination: no dysmetria, performs finger to nose and heel to ely symmetrically without ataxia, no gait ataxia, no truncal ataxia, no difficulty with rapid alternating movements Results - Laboratory Findings CBC and BMP: 01/21/17 01:51 01/21/17 01:51 Abnormal lab findings: Abnormal lab results MPV 8.9 fL (9.4-12.4) L 01/21/17 01:51 APTT 23.8 Seconds (26.0-36.0) L 01/20/17 08:43 Chloride 110 mEq/L (98-109) H 01/21/17 01:51 Est GFR (Non-Af Amer) 59 (> 60) L 01/21/17 01:51 POC Glucose 104 (58-89) H 01/20/17 08:23 Albumin 3.2 g/dL (3.5-5.0) L 01/21/17 01:51 HDL Cholesterol 63 mg/dL (40-59) H 01/21/17 01:51 Ur Specific [place] 1.006 (1.010-1.025) L 01/20/17 11:19 Ur Leukocyte Esterase Trace (Negative) H 01/20/17 11:19 Ur Squamous Epith Cells Moderate per lpf (None-Few) H 01/20/17 11:19 Ur Culture Indicated? YES (NO) A 01/20/17 11:19 - Diagnostic Findings Additional findings: Head CT 01/20/17 08:22 IMPRESSION: No acute intracranial abnormality. D/ / Francisco Mcknight MD / Francisco Mcknight MD Interpreting Provider: Francisco Mcknight MD Brain MRI 01/20/17 13:52 IMPRESSION: 1. Small acute infarct involving the left frontal lobe. 2. No significant mass effect or midline shift. 3. Minimal chronic microvascular ischemic changes. These results were sent to the [facility] ([facility]) on 01/20/2017 at 2:54 pm to be communicated to the referring/covering health care provider/office. D/ / Charly Weldon MD / Charly Weldon MD Interpreting Provider: Charly Weldon MD Head CTA 01/21/17 13:30 IMPRESSION: No intracranial flow-limiting stenosis or aneurysm. D/ / 01/21/2017 14:37:10 Jennifer Chung MD / Angela Gamble Interpreting Provider: Jennifer Chung MD Consult Discharge Plan - Plan Referrals: NO,PCP [Primary Care Provider] - <Jayashree Larson - Last Filed: 01/21/17 17:00> Date of Encounter: 01/21/17 History of Present Illness HPI: Ms. Miranda is a 71 year old female All Systems: A 10-system review of systems was performed and is negative for pertinent findings except as documented above in the HPI. Physical Examination - Vital Signs Vital Signs: Initial Vital Signs Temp Pulse Resp BP Pulse Ox 97.8 F 79 16 188/84 99 01/20/17 08:22 01/20/17 08:22 01/20/17 08:22 01/20/17 08:22 01/20/17 08:22 Results - Laboratory Findings CBC and BMP: 01/21/17 01:51 01/21/17 01:51 Abnormal lab findings: Abnormal lab results MPV 8.9 fL (9.4-12.4) L 01/21/17 01:51 APTT 23.8 Seconds (26.0-36.0) L 01/20/17 08:43 Chloride 110 mEq/L (98-109) H 01/21/17 01:51 Est GFR (Non-Af Amer) 59 (> 60) L 01/21/17 01:51 POC Glucose 104 (58-89) H 01/20/17 08:23 Albumin 3.2 g/dL (3.5-5.0) L 01/21/17 01:51 HDL Cholesterol 63 mg/dL (40-59) H 01/21/17 01:51 Ur Specific [place] 1.006 (1.010-1.025) L 01/20/17 11:19 Ur Leukocyte Esterase Trace (Negative) H 01/20/17 11:19 Ur Squamous Epith Cells Moderate per lpf (None-Few) H 01/20/17 11:19 Ur Culture Indicated? YES (NO) A 01/20/17 11:19
--- NOTE | 2017-01-21 19:39 | Carotid Imaging Report ---
Carotid Duplex Patient Name:Joellen Miranda Order Number:[id number] Procedure Date:01/20/2017 Date:8Age:71 yrs Gender:Female Lt BP:158 / 78 mmHg Rt.BP:144 / 72 mmHgHeart Rate: Location:[facility] Room #: 2NE16 Buddhist Monk:Lauren Chavarria Referring MD:Nolan Larsen MD transition program manager:None Reading MD:Phong Glynn MD Primary Indications:TIA Risk Factors Yes/No Hypercholesterolemia Yes Hx of TIA Yes Anticoagulants Yes Impressions: Findings: Bilateral carotid system is essentially normal. Recommendations: After imaging the patient returned to their room. Findings Carotid Duplex: Right: The right proximal common carotid artery has a PSV of 91 cm/s and a EDV of 19 cm/s. The right mid common carotid artery has a PSV of 92 cm/s and a EDV of 21 cm/s. The right distal common carotid artery has a PSV of 88 cm/s and a EDV of 20 cm/s. The right bifurcation has a PSV of 67 cm/s and a EDV of 17 cm/s. The right proximal internal carotid artery has a PSV of 92 cm/s and a EDV of 26 cm/s. The right mid internal carotid artery has a PSV of 111 cm/s and a EDV of 31 cm/s. The right distal internal carotid artery has a PSV of 116 cm/s and a EDV of 35 cm/s. The right eca has a PSV of 116 cm/s and a EDV of 18 cm/s. The right vertebral artery has a PSV of 39 cm/s and a EDV of 9 cm/s. Left: The left proximal common carotid artery has a PSV of 110 cm/s and a EDV of 19 cm/s. The left mid common carotid artery has a PSV of 100 cm/s and a EDV of 18 cm/s. The left distal common carotid artery has a PSV of 82 cm/s and a EDV of 17 cm/s. The left bifurcation has a PSV of 74 cm/s and a EDV of 17 cm/s. The left proximal internal carotid artery has a PSV of 80 cm/s and a EDV of 25 cm/s. The left mid internal carotid artery has a PSV of 95 cm/s and a EDV of 28 cm/s. The left distal internal carotid artery has a PSV of 109 cm/s and a EDV of 34 cm/s. The left eca has a PSV of 102 cm/s and a EDV of 15 cm/s. The left vertebral artery has a PSV of 33 cm/s and a EDV of 8 cm/s. Prior Study: No prior study available for comparison. Carotid Results Right PSV EDV Assessment Proximal CCA 91 19 Normal Mid CCA 92 21 Normal Distal CCA 88 20 Normal Bifurcation 67 17 Normal Proximal ICA 92 26 Normal Mid ICA 111 31 Normal Distal ICA 116 35 Normal ECA 116 18 Normal Vertebral Artery 39 9 Normal Left PSV EDV Assessment Proximal CCA 110 19 Normal Mid CCA 100 18 Normal Distal CCA 82 17 Normal Bifurcation 74 17 Normal Proximal ICA 80 25 Normal Mid ICA 95 28 Normal Distal ICA 109 34 Normal ECA 102 15 Normal Vertebral Artery 33 8 Normal Ratio's Right ICA/CCA Ratio: 1.26 ICA/CCA Values: 116/92 Left ICA/CCA Ratio: 1.09 ICA/CCA Values: 109/100 Updated by Phong Glynn MD on 01/21/2017 7:31:22 PM electronically signed on 01/21/2017 7:31:33 PM with status of Final
[2017-01-22] MEDS: 0.9 % Sodium Chloride 1,000 ML IVC SCH (04:00)
[2017-01-22] MEDS: *HR* Heparin 5,000 UNIT/ML VIAL SQ SCH (05:31)
[2017-01-22 06:29] LABS: Basophils # 0.1 K/mcL (0.0-0.2); Basophils % 0.8 %; Eosinophils # 0.2 K/mcL (0.0-0.6); Eosinophils % 1.7 %; Hematocrit 42.2 % (35.3-44.9); Immature Granulocytes % 0.3 % (0-4); Lymphocytes # 2.2 K/mcL (0.6-4.6); Lymphocytes % 25.8 %; Mean Corpuscular HGB Conc 33.2 g/dL (31.6-35.5); Mean Corpuscular Hemoglobin 30.1 pg (28.0-33.3); Mean Corpuscular Volume 90.8 fL (83.0-100.0); Monocytes # 0.7 K/mcL (0.0-1.3); Monocytes % 7.8 %; Neutrophils # 5.5 K/mcL (1.6-8.9); Platelet Count 148 K/mcL (140-400); Red Blood Count 4.65 M/mcL (3.82-4.97); Red Cell Distribution Width 12.5 % (11.5-14.5); Segmented Neutrophils % 63.6 %
[2017-01-22 06:33] LABS: Alanine Aminotransferase 18 Units/L (0-55); Albumin 3.2 g/dL (3.5-5.0); Albumin/Globulin Ratio 1.1 (1.1-2.2); Alkaline Phosphatase 59 Units/L (38-126); Aspartate Amino Transferase 16 Units/L (5-34); BUN/Creatinine Ratio 14 (6-26); Bilirubin,Total 0.4 mg/dL (0.2-1.2); Blood Urea Nitrogen 13 mg/dL (7-20); Calcium 9.2 mg/dL (8.6-10.8); Carbon Dioxide 25 mEq/L (19-29); Chloride 111 mEq/L (98-109); Globulin 2.9 g/dL (2.4-3.5); Glucose 82 mg/dL (70-99); Osmolality,Calculated 295 (280-300); Potassium 3.8 mEq/L (3.5-4.5); Sodium 143 mEq/L (136-145); Total Protein 6.1 g/dL (6.0-8.3); eGFR For African Americans > 60 (> 60); eGFR For Non-African Americans > 60 (> 60)
[2017-01-22 06:47] VITALS: BP 142/73
--- NOTE | 2017-01-22 08:19 | Discharge Summary ---
Date of Encounter: 01/22/17 Time of Encounter: 08:10 - Discharge Diagnosis (1) CVA (cerebral vascular accident) Priority: Primary Status: Acute Qualifiers: CVA mechanism: unspecified Qualified Code(s): I63.9 - Cerebral infarction, unspecified (2) TIA (transient ischemic attack) Priority: Primary Status: Acute Qualifiers: Transient cerebral ischemia type: unspecified Qualified Code(s): G45.9 - Transient cerebral ischemic attack, unspecified (3) Rash Priority: Secondary Status: Acute (4) DVT prophylaxis Priority: Secondary Status: Acute - Discharge Medications Prescriptions: Clopidogrel [Plavix] 75 mg PO DAILY #30 tablet Home Medications: Aspirin Enteric Coated [Aspirin EC] 81 mg PO BID 01/20/17 [History] Atorvastatin Calcium [Lipitor] 20 mg PO HS 01/20/17 [History] Calcium Crb,Cit/D3/Min34/Julio César [Citracal + Bone Density Tablet] 1 tab PO DAILY 01/20/17 [History] Cyanocobalamin (Vitamin B-12) [Vitamin B12] 1,000 mcg PO DAILY 01/20/17 [History ] Omeprazole [PriLOSEC] 20 mg PO DAILY 01/20/17 [History] Spironolactone [Aldactone] 100 mg PO DAILY 01/20/17 [History] predniSONE [PredniSONE] 10 mg PO DAILY 01/20/17 [History] Clopidogrel [Plavix] 75 mg PO DAILY #30 tablet 01/22/17 [Rx] Allergies/Adverse Reactions: Allergies NSAIDS (Non-Steroidal Anti-Inflamma Adverse Reaction (Verified 01/20/17 13:01) See Comments RINGING IN THE EARS Procedures/tests Complete & Pending: Procedures Performed prior 72 hours Category Date Time Status CT angio head [CT] Routine Cat Scan 01/21/17 13:30 Draft MR head/brain wo con [MR] Stat MRI 01/20/17 13:52 Completed EV carotid duplex imaging BI Stat Y 01/20/17 13:51 Completed EV echocardiogram Stat Y 01/20/17 13:51 Completed Date of admission: 01/20/17 13:50 Primary care physician: PCP NO Consults: 01/21/17 10:34 Consult to Physician [CONS] Routine Consulting Provider: David Nazario Reason for Consult: Suspect [employer] vasculitis Call Completed: Yes 01/21/17 11:53 Consult to Physical Therapy [CONS] Routine Comment: Evaluate, develop and implement POC Reason for Consult: stroke protocol 01/21/17 11:54 Consult to Occupational Therapy [CONS] Routine Comment: Evaluate, develop and implement POC Reason for Consult: stroke protocol Discharging clinician: Nolan Larsen - Patient Status Disposition: Home, Self-Care Condition: Good Functional capacity at discharge: independent ambulation Overall status at discharge: patient is progressing back to baseline - Discharge Instructions Instructions: Ischemic Stroke (DC), Ischemic Stroke (GEN) Follow Up With: NO,PCP [Primary Care Provider] - Forms: ED Satisfaction Letter Additional Instructions: raegan will follow up with her own PCP Dr Coleen Joe - Diet and Activity Activity: as per physical therapy, increase activity as tolerated Diet: low fat, low cholesterol Interval History: 71/F PCP : Dr Coleen Norman Brief PMH: GERD, Lupus ( treated like ), Hepatitis HPI: Patient was on her way to [place] from [facility]. Noted that during the drive she has a dysarthria. noted few episodes of confusion. Patient claims that problems was getting worse and her noted some bizarre behavior in terms of identifying simple objects. Patient denies history of coronary artery disease, atrial fibrillation, nausea, vomiting, chest pain, abdominal pain or diarrhea. Patient was concerned regarding this is an patient and he brought her to the emergency room for further evaluation. Course in emergency room: Patient was evaluated in the emergency room.Basic labs are drawn.CT scan of the head was performed. Reason for admission: Possible TIA to rule out CVA Hospital course: Patient was hospitalized. She underwent MRI scan of the brain. MRI scan of the brain revealed left frontal lobe acute small infarct. Echocardiogram/ ultrasound carotid/CT angiogram of the brain was negative for any obstructive etiology. Neurology was consulted. Neurology recommended Plavix 75 mg once a day as this is an aspirin failure infarct. Rheumatology was consulted in view of underlying SUBHASH positive small joint pain and rash and possible assoication with vasculitic CVA. Rheumatology does not feel this is vasculitic CVA. Regarding generalized rash, patient prefers to follow with her own dermatology and not keen to take any opinion from this hospital. plan Patient can go home today. New home medication Plavix: This is added as she has Aspirin failure Infarct ( Patient has home medication ASA). Risk, benefit, advantage and alternative options regarding Rx explained at length. Side effects discussed at length. Patient can follow up with her PCP in 1-2 weeks. I recommended patient to feel the release from so that we can fax the documents including discharge summary to her PCP. All questions answered. Patient's is at bedside. At the time of discharge patient does not have any questions, concerns, updates or recommendation. - Time Spent with Patient Total time spent providing and/or coordinating discharge services: - Constitutional Vitals: Temp Pulse Resp BP Pulse Ox 98.3 F 65 17 142/73 98 01/22/17 06:45 01/22/17 06:45 01/22/17 06:45 01/22/17 06:45 01/22/17 06:45 General appearance: Present: A&O X 3, pleasant, no acute distress, answers questions appropriately
[2017-01-22] MEDS: Cyanocobalamin (B-12) 1,000 MCG TABLET PO SCH (10:02)
[2017-01-22] MEDS: predniSONE 10 MG TABLET PO SCH (10:02)
[2017-01-22] MEDS: Aspirin Enteric Coated 81 MG Tablet PO SCH (10:02)
[2017-01-22 16:47] LABS: Complement Component 3 158 mg/dL (88-201); Complement Component 4 30 mg/dL (10-40)
[2017-01-23 17:51] LABS: APTT (LE Anticoag) 30 sec (32-48); Diluted Russell Viper Venom 28 sec (33-44); PT (LE-Anticoag) 11.9 sec (12.0-15.5)
== END 2017-01-22 13:28 | disposition home or self-care (01) | DRG 66 ==
LOC: 2NENU 08:12 → EMEROO 08:12 → 2NENU 15:09
PROVIDERS: ADMIT Internal Medicine; ATTEND Internal Medicine